=== PATIENT | female | born 1960 ===

== ENCOUNTER 2023-05-19 06:15 | Day surgery (SDC) | payer OTHER ==
[~2023-05-19 06:15] MED LIST: ATORVASTATIN CA10 MG PO; MICARDIS40 MG PO; SYNTHROID125 MCG PO; XIGDUO XR 10 M1 EAC1 PO
== END 2023-05-19 14:05 | disposition home or self-care (01) ==
LOC: CIR.AMB 06:15
PROVIDERS: ATTEND Surgery Surgery of the Hand
DX: M65.842 Other synovitis and tenosynovitis, left hand (principal); Z20.822 Contact with and (suspected) exposure to COVID-19